=== PATIENT | female | born 1980 | race Caucasian/White ===

== ENCOUNTER 2025-06-19 09:48 | Emergency (ER) | payer SELFPAY ==
[2025-06-19 09:50] VITALS: BP 112/73; PULSE 85; RESP 16; TEMP 36.1; O2SAT 98
--- NOTE | 2025-06-19 10:00 | DI.RAD_ITS ---
Exam(s) XR FOOT LT COMPLETE EXAM: XR FOOT LT COMPLETE CLINICAL HISTORY: toe pain and swelling. TECHNIQUE: 2D digital imaging was performed. COMPARISON: No exams were available for comparison FINDINGS: 3 views No evidence of acute fracture or diastasis of the Lisfranc joint. Great toe metatarsophalangeal joint appears unremarkable as do the other articulations of the foot. Bone density normal. There is a small inferior calcaneal spur. IMPRESSION: No fractures. Small inferior calcaneal spur noted. DATA REPOSITORY: RADIATION DOSE DELIVERED:
--- NOTE | 2025-06-19 10:06 | W.ED.GENAD ---
Discharge Plan Disposition Patient Disposition: Home Condition: Stable Discharge Details Clinical Impression: Left foot pain Primary Care Provider: Mejia Coe ED Provider: Abner Rodriguez Home Meds and New Rx's Prescriptions: New amoxicillin-pot clavulanate 875-125 mg tablet 1 tab PO BID Qty: 14 0RF Continued insulin lispro [Admelog U-100 Insulin lispro] 100 unit/mL solution 1 sliding scale dose subcut USEASDIRECTD insulin glargine [Basaglar KwikPen U-100 Insulin] 100 unit/mL (3 mL) insulin pen 21 unit subcut QPM lisinopril 10 mg tablet 10 mg PO DAILY metformin 1,000 mg tablet 1,000 mg PO BID ergocalciferol (vitamin D2) 1,250 mcg (50,000 unit) capsule 1,250 mcg PO QWEEK folic acid 1 mg tablet 1,000 mcg PO DAILY semaglutide 0.25 mg or 0.5 mg(2 mg/1.5 mL) pen injector 0.25 mg subcut QWEEK Rx Instructions: for 4 weeks Discharge Instructions Instructions: Quitting Smoking ED Additional Instructions: Your blood work did not show any emergent findings. Take the antibiotic as prescribed. Is very important you stop smoking, your primary care provider can assist with this if [id number] remedies such as nicotine patches or chewables are not working. Follow-up with your primary care provider in 1 to 2 weeks. If you feel significantly more ill or have new symptoms such as high fevers return to the emergency department for reevaluation. HPI General Mode of arrival: ambulatory. Date/Time Provider Initiated Documentation: 06/19/25 09:50. Limitations to Documentation: no limitations. Information obtained by: patient. History of Present Illness 44 year old F presents to the emergency department with the chief complaint of left foot toes pain/discoloration, described as moderate, Patient started experiencing this month(s) (1) and it has been constant. No relieving factors improve symptom(s), No exacerbating factors reported . Patient notes no other symptoms.. Patient did receive the following treatments prior to arrival, none Related Data Home Medications Medication Instructions Recorded Confirmed amoxicillin 875 mg-potassium 1 tab PO BID #14 tabs 06/19/25 clavulanate 125 mg tablet ergocalciferol (vitamin D2) 1,250 1,250 mcg PO QWEEK 06/19/25 06/19/25 mcg (50,000 unit) capsule folic acid 1 mg tablet 1,000 mcg PO DAILY 06/19/25 06/19/25 insulin glargine 100 unit/mL (3 21 unit subcut QPM 06/19/25 06/19/25 mL) subcutaneous pen (Basaglar KwikPen U-100 Insulin) insulin lispro 100 unit/mL 1 sliding scale dose subcut 06/19/25 06/19/25 subcutaneous solution (Admelog USEASDIRECTD U-100 Insulin lispro) lisinopril 10 mg tablet 10 mg PO DAILY 06/19/25 06/19/25 metformin 1,000 mg tablet 1,000 mg PO BID 06/19/25 06/19/25 semaglutide 0.25 mg or 0.5 mg (2 0.25 mg subcut QWEEK 06/19/25 06/19/25 mg/1.5 mL) subcutaneous pen injector Previous Rx's Medication Instructions Recorded amoxicillin 875 mg-potassium 1 tab PO BID #14 tabs 06/19/25 clavulanate 125 mg tablet Allergies Allergy/AdvReac Type Severity Reaction Status Date / Time No Known Allergies Allergy Verified 06/19/25 09:52 General Stated Complaint: Orthopedic SABAS: 4 Review of Systems All systems reviewed & are unremarkable except as noted in HPI and below Constitutional Constitutional: Denies chills, Denies fever(s) and Denies weakness Cardiovascular Cardiovascular: Denies chest pain and Denies dyspnea Respiratory Respiratory: Denies cough and Denies dyspnea Gastrointestinal Gastrointestinal: Denies abdominal pain, Denies nausea and Denies vomiting Integumentary/Breasts Skin/Breast: Reports change in pigmentation Neurologic Neurologic: Denies weakness Exam Const General: no acute distress Orientation: alert [facility] Head: normal to inspection Ears: external ears normal General nose exam: external nose normal Mouth: moist mucous membranes Eyes General: appearance normal, both eyes and all related structures Neck Neck: normal visual inspection Resp Effort & Inspection: normal respiratory effort and able to speak in complete sentences Cardio Rate: regular rate Skin General skin exam: elasticity normal Neuro General: patient alert and patient oriented x3 Extrem General: full ROM Psych Mental Status: mental status grossly normal Course Vital Signs Vital signs: Vital Signs Temperature 36.1 C L 06/19/25 09:50 Pulse 85 06/19/25 09:50 Respiratory Rate 16 06/19/25 09:50 Blood Pressure 112/73 06/19/25 09:50 Pulse Oximetry 98 06/19/25 09:50 Temperature 36.1 C L 06/19/25 09:50 Temperature Source Oral 06/19/25 09:50 Pulse 85 06/19/25 09:50 Respiratory Rate 16 06/19/25 09:50 Blood Pressure 112/73 06/19/25 09:50 Blood Pressure Position Sitting 06/19/25 09:50 Pulse Oximetry 98 06/19/25 09:50 Oxygen Delivery Method Room Air 06/19/25 09:50 Oxygen Flow Rate 0 06/19/25 09:50 Medical Decision Making 44-year-old female with a history of type 1 diabetes, hypertension, smoker who comes in with 1 month of left 4th and 3rd toe pain and discoloration. She states that she stubbed it about a month ago and is unsure if she got a splinter in her toe. She denies ever having any skin breakdown. Denies any high fevers. Her left 3rd and 4th toe have faint erythema, there is no lesions or ulcerations. She is able to fully range the toe and can feel me touching the toes and they are painful. Suspect this could be diabetic foot infection versus possibility of thromboangiitis obliterans. Will check CBC CMP inflammatory markers INR and also obtain x-rays and reassess. There is no swelling of the foot or calf so I doubt entities such as DVT. Patient's labs unremarkable other than glucose of 300 with normal anion gap, on reassessment patient states that she checked her sugar after they were drawn and self-administered her own dose of insulin. Discussed results with her and I am to start her on Augmentin for possible diabetic foot infection but I also stressed that this could be early signs of thromboangiitis obliterans and that she should stop smoking to prevent possible loss of fingers and toes. She understood this and will follow-up with her PCP and return precautions given. Differential Diagnosis Differential Diagnosis: cellulitis, thromboangiitis obliterans PFSH All Active Problems (Updated 06/19/25 @ 11:27 by Abner Rodriguez MD) Left foot pain (Acute) Social History Smoking risk assessment performed?: No Do you feel safe at home: Yes Do you feel safe in your relationship?: Yes
[2025-06-19 10:29] LABS: Abs Immature Grans 0.01 10^3/uL (0.0-0.06); HCT 41.0 % (36.0-46.0); HGB 13.7 g/dL (11.2-15.7); Immature Grans % 0.2 %; MCH 33.6 pg (27.0-33.0); MCHC 33.4 % (32.0-36.0); MCV 101 fL (80-95); MPV 9.4 fL (8.0-11.0); Platelet Count 326 10^3/uL (130-400); RBC 4.08 10^6/uL (3.93-5.22); RDW 11.7 % (11.7-14.6); RDW-SD 43.3 fL; WBC 5.52 10^3/uL (4.4-10.8)
[2025-06-19 10:37] LABS: ESR 22 mm/hr (0-20)
[2025-06-19 10:42] LABS: INR 1.0 (0.9-1.1); PTT Activated 23.0 sec (20.6-30.2); Prothrombin Time 9.6 sec (9.1-11.1)
--- NOTE | 2025-06-19 10:44 | DI.VRAD_ITS ---
PROCEDURE INFORMATION: Exam: XR Left Foot Exam date and time: 06/19/2025 10:30 AM Age: 44 years old Clinical indication: Pain; Toes; Left TECHNIQUE: Imaging protocol: Radiologic exam of the left foot. Views: 3 or more views. COMPARISON: No relevant prior studies available. FINDINGS: Bones/joints: No acute fracture or dislocation is identified. 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 Small plantar calcaneal enthesophyte. There is no osseous erosion or cortical destruction. Soft tissues: Grossly unremarkable. IMPRESSION: Small plantar calcaneal enthesophyte. Dictated and Authenticated by: Abner Echols MD. Orderin Jennifer Levine MD
[2025-06-19 10:50] LABS: ALT 24 U/L (14-59); AST 20 U/L (15-37); Albumin 3.1 g/dL (3.4-5.0); Alkaline Phosphatase 69 U/L (46-116); Anion Gap 9.2 mmol/L (3-11); BUN 8 mg/dL (7-18); Bilirubin, Total 0.3 mg/dL (0.2-1.0); CO2 25.8 mmol/L (21.0-32.0); Calcium 8.6 mg/dL (8.5-10.1); Chloride 100 mmol/L (98-107); Glucose 311 mg/dL (74-106); Magnesium 1.7 mg/dL (1.8-2.4); Potassium 4.4 mmol/L (3.5-5.1); Sodium 135 mmol/L (136-145); Total Protein 7.4 g/dL (6.4-8.2)
[2025-06-19 10:51] LABS: C-Reactive Protein < 0.50 mg/dL (<or=0.5)
[2025-06-19] MEDS: Amoxicillin 875/Clav. 125 TAB PO (11:52)
== END 2025-06-19 12:06 | disposition home or self-care (01) ==
PROVIDERS: Emergency Provider Emergency Medicine; PCP Nurse Practitioner Family
DX: M79.672 Pain in left foot (principal); E10.9 Type 1 diabetes mellitus without complications
CPT/HCPCS: 99283; 99284; 80053; 85652; 73630; 83735; 85025; 85610; 85730; 86140